=== PATIENT | male | born 1950 | race Hispanic/Latino ===

== ENCOUNTER 2022-07-19 07:04 | Day surgery (SDC) | payer OTHER ==
[2022-07-17 13:26] LABS: BASOPHILS % (AUTO) 0.3 % (0.0-5.0); EOSINOPHILS % (AUTO) 0.9 % (0.0-8.0); HEMATOCRIT 45.9 % (42-54); LYMPHOCYTES % (AUTO) 33.1 % (21.0-51.0); MEAN CORPUSCULAR HEMOGLOBIN 30.8 pg (27.0-33.0); MEAN CORPUSCULAR HGB CONC 33.8 g/dL (32.0-36.0); MEAN CORPUSCULAR VOLUME 91.3 fL (79-99); MONOCYTES % (AUTO) 6.6 % (3.0-13.0); NEUTROPHILS % (AUTO) 58.4 % (40.0-77.0); PLATELET COUNT (AUTO) 200 K/uL (130-400); RED BLOOD CELL COUNT(AUTO) 5.03 MIL/uL (4.50-6.20); RED CELL DISTRIBUTION WIDTH 13.4 % (11.0-15.5)
[2022-07-18 11:49] VITALS: BP 131/61
[~2022-07-19] VITALS: Ht 165.1 cm; Wt 73.5 kg
[2022-07-19] VITALS (18 sets, daily range): BP systolic 103–134; BP diastolic 47–73
[~2022-07-19 07:04] MED LIST: ATOR20TA65 PO; CEFAZOLIN SODIUM 1 GM VIAL IVPB SCH; CYAN-35 PO; EMPA10TA PO; ENAL10TA18 PO; FAMO20TA8 PO; GLIP10TA9 PO; MIRA25TA PO; OMEP-420 PO; SITA1TAB6 PO; TAMS-1 PO
[2022-07-19] MEDS ORDERED: BUPIVACAINE/PF 0.25% 30ML VIAL IJ ONE (07:17)
[2022-07-19] MEDS ORDERED: 0.9%NACL 1000ML 1,000 ML IV ONE (07:25)
[2022-07-19] MEDS ORDERED: BACITRACIN 28.4 GM OINT TP ONE (07:29)
[2022-07-19] MEDS ORDERED: MIDAZOLAM HCL 1 MG/ML 2ML VIAL ONE (08:44)
[2022-07-19] MEDS ORDERED: ONDANSETRON 4MG INJ ONE (08:45)
[2022-07-19] MEDS ORDERED: ROCURONIUM 10MG/1ML SYR 10 MG/ML ML ONE (08:45)
[2022-07-19] MEDS ORDERED: PROPOFOL 10 MG/ML 20ML VIAL IV ONE (08:45)
[2022-07-19] MEDS ORDERED: FENTANYL CITRATE PF 50 MCG/1 ML 2ML VIAL ONE ×2 (08:46→09:19)
[2022-07-19] MEDS ORDERED: PHENYLEPHRINE HCL 10 MG/ML 1ML VIAL IV ONE (09:12)
[2022-07-19] MEDS ORDERED: NEOSTIGMINE 5MG/5ML SYR IV ONE (09:31)
[2022-07-19] MEDS ORDERED: GLYCOPYRROLATE 1 MG/5 ML SYRINGE ONE ×2 (09:31→09:58)
== END 2022-07-19 11:45 | disposition home or self-care (01) ==
LOC: DAH 07:04
PROVIDERS: ATTEND Urology
DX: N48.89 Other specified disorders of penis (principal); Z20.822 Contact with and (suspected) exposure to COVID-19; I10 Essential (primary) hypertension; K21.9 Gastro-esophageal reflux disease without esophagitis; E11.9 Type 2 diabetes mellitus without complications; Z79.899 Other long term (current) drug therapy; Z98.890 Other specified postprocedural states
CPT/HCPCS: 87426; 80048; 85025; 36415; 93005; 11421; 82948 ×2; 88305; 88312; A6260; A4663; J7030 ×2; A4606; J3010 ×2; J0690; J3490 ×3; J2710; J2250; J2704; J2405; J2370; A4215; A4223; A4222; A4221; A4510; A4600

== ENCOUNTER 2022-08-12 10:49 | Observation (INO) | payer OTHER ==
[~2022-08-12] VITALS: Ht 165.1 cm; Wt 74.1 kg
[~2022-08-12 10:49] MED LIST changes: -CEFAZOLIN SODIUM 1 GM VIAL IVPB SCH
[2022-08-12] MEDS ORDERED: IPRATROPIUM/ALBUTEROL SULFATE 3 ML SOLUTION IH ONE ×2 (12:00→14:00)
[2022-08-12] MEDS ORDERED: 0.9% NACL 500ML IV.SOLN 500 ML IV ONE ×2 (12:00→13:00)
[2022-08-12 12:07] LABS: BASOPHILS % (AUTO) 0.3 % (0.0-5.0); EOSINOPHILS % (AUTO) 0.1 % (0.0-8.0); HEMATOCRIT 46.2 % (42-54); MEAN CORPUSCULAR HEMOGLOBIN 30.4 pg (27.0-33.0); MEAN CORPUSCULAR HGB CONC 34.6 g/dL (32.0-36.0); MEAN CORPUSCULAR VOLUME 87.8 fL (79-99); NEUTROPHILS % (AUTO) 83.1 % (40.0-77.0); PLATELET COUNT (AUTO) 198 K/uL (130-400); RED BLOOD CELL COUNT(AUTO) 5.26 MIL/uL (4.50-6.20); RED CELL DISTRIBUTION WIDTH 13.5 % (11.0-15.5); WHITE BLOOD COUNT (AUTO) 11.8 K/uL (4.8-10.8)
[2022-08-12 12:17] LABS: CREATININE 1.1 mg/dL (0.5-1.5); POTASSIUM 3.8 mmol/L (3.5-5.1)
[2022-08-12 12:22] LABS: ALBUMIN 4.3 g/dL (3.5-5.0); TOTAL PROTEIN, SERUM 8.2 g/dL (6.0-8.3)
[2022-08-12 12:30] LABS: APPEARANCE,URINE CLEAR (CLEAR)
[2022-08-12 12:31] LABS: BILIRUBIN,URINE NEGATIVE (NEGATIVE); COLOR,URINE LIGHT-YELLOW (YELLOW); GLUCOSE, URINE (UA) >=1000 mg/dL (NEGATIVE); KETONES,URINE 10 mg/dL (NEGATIVE); LEUKOCYTE ESTERASE ,URINE NEGATIVE Leu/uL (NEGATIVE); NITRATE,URINE NEGATIVE (NEGATIVE); OCCULT BLOOD,URINE NEGATIVE (NEGATIVE); PROTEIN,URINE NEGATIVE (NEGATIVE); UROBILINOGEN,URINE 0.2 mg/dL (0.2-1.0)
[2022-08-12 12:49] LABS: RBC,URINE 0-1 /HPF (0-1)
[2022-08-12] MEDS ORDERED: CEFTRIAXONE 1G VIAL IVP ONE (13:00)
[2022-08-12] MEDS ORDERED: SOLU-MEDROL 125MG VIAL IVP ONE (13:00)
[2022-08-12] MEDS ORDERED: CLONIDINE HCL 0.1 MG TABLET PO PRN (15:00)
[2022-08-12] MEDS: SOLU-MEDROL 125MG VIAL IVP SCH ×2 (15:00→22:39)
[2022-08-12] MEDS ORDERED: LACTULOSE 20 GM/30 ML UDCUP PO PRN (15:00)
[2022-08-12] MEDS ORDERED: IPRATROPIUM/ALBUTEROL SULFATE 3 ML SOLUTION IH SCH (15:00)
[2022-08-12] MEDS ORDERED: TEMAZEPAM 15 MG CAPSULE PO PRN (15:00)
[2022-08-12] MEDS ORDERED: ACETAMINOPHEN 325 MG TAB PO PRN (15:00)
[2022-08-12] MEDS ORDERED: HYDRALAZINE 20MG/ML VIAL IV PRN (15:00)
[2022-08-12] MEDS ORDERED: ONDANSETRON 4MG INJ IVP PRN (15:00)
[2022-08-12] MEDS ORDERED: ACETAMINOPHEN 650 MG SUPPOSITORY RC PRN (15:00)
[2022-08-12] MEDS ORDERED: LEVOFLOXACIN 500 MG/D5W 100 ML IV SCH (16:00)
[2022-08-12] MEDS ORDERED: IOHEXOL 350 MG/ML 100ML INFUS..BTL IV ONE (16:04)
[2022-08-12] MEDS: LEVOFLOXACIN 500 MG/D5W 100 ML 100 ML IV SCH (16:09)
[2022-08-12] MEDS: INSULIN HUMULIN R 100 UNIT/ML 3ML SQ SCH ×2 (16:09→21:25)
[2022-08-12] MEDS: IPRATROPIUM/ALBUTEROL SULFATE 3 ML SOLUTION IH SCH ×2 (18:29→23:04)
[2022-08-12] MEDS: BUDESONIDE 0.5 MG/2 ML INH IH SCH (18:46)
[2022-08-12] MEDS ORDERED: 0.9%NACL 1000ML 1,000 ML IV STA (22:50)
[2022-08-13] VITALS (7 sets, daily range): BP systolic 118–150; BP diastolic 56–85
[2022-08-13] MEDS ORDERED: PANTOPRAZOLE 40 MG TAB DR PO PRN (01:00)
[2022-08-13] MEDS: IPRATROPIUM/ALBUTEROL SULFATE 3 ML SOLUTION IH SCH ×6 (02:11→23:10)
[2022-08-13 04:00] LABS: BASOPHILS % (AUTO) 0.1 % (0.0-5.0); HEMATOCRIT 41.2 % (42-54); LYMPHOCYTES % (AUTO) 7.5 % (21.0-51.0); MEAN CORPUSCULAR HEMOGLOBIN 30.5 pg (27.0-33.0); MEAN CORPUSCULAR VOLUME 89.8 fL (79-99); MONOCYTES % (AUTO) 1.4 % (3.0-13.0); NEUTROPHILS % (AUTO) 90.4 % (40.0-77.0); PLATELET COUNT (AUTO) 180 K/uL (130-400); RED BLOOD CELL COUNT(AUTO) 4.59 MIL/uL (4.50-6.20); RED CELL DISTRIBUTION WIDTH 13.9 % (11.0-15.5); WHITE BLOOD COUNT (AUTO) 9.7 K/uL (4.8-10.8)
[2022-08-13 04:18] LABS: B-TYPE NATRIURETIC PEPTIDE 83 pg/mL (0-100)
[2022-08-13 04:25] LABS: CREATININE 0.9 mg/dL (0.5-1.5); MAGNESIUM 1.9 mg/dL (1.80-2.40); PHOSPHORUS 3.1 mg/dL (2.5-4.9)
[2022-08-13] MEDS: SOLU-MEDROL 125MG VIAL IVP SCH ×3 (04:40→23:09)
[2022-08-13] MEDS: INSULIN HUMULIN R 100 UNIT/ML 3ML SQ SCH ×3 (05:44→20:42)
[2022-08-13] MEDS ORDERED: 0.9%NACL 1000ML 1,000 ML IV ONE (06:00)
[2022-08-13] MEDS ORDERED: 0.9%NACL 1000ML 1,000 ML IV SCH (06:00)
[2022-08-13] MEDS: BUDESONIDE 0.5 MG/2 ML INH IH SCH ×2 (06:13→18:31)
[2022-08-13] MEDS: MIRABEGRON PO SCH (09:00)
[2022-08-13] MEDS: ASCORBIC ACID 500 MG TAB PO SCH (09:26)
[2022-08-13] MEDS: ASPIRIN 81MG CHEW TAB PO SCH (09:26)
[2022-08-13] MEDS: GLIPIZIDE 5 MG TABLET PO SCH (09:26)
[2022-08-13] MEDS: ENALAPRIL MALEATE 10 MG TABLET PO SCH (09:26)
[2022-08-13] MEDS: CYANOCOBALAMIN (VITAMIN B-12) 1,000 MCG TABLET PO SCH (09:27)
[2022-08-13] MEDS: FOLIC ACID 1 MG TABLET PO SCH (09:27)
[2022-08-13] MEDS: PANTOPRAZOLE 40 MG TAB DR PO SCH (09:27)
[2022-08-13] MEDS: THIAMINE HCL 100 MG TABLET PO SCH (09:27)
[2022-08-13] MEDS: ENOXAPARIN SODIUM 40 MG/0.4 ML SYRINGE SQ SCH (09:32)
[2022-08-13] MEDS: LEVOFLOXACIN 500 MG/D5W 100 ML 100 ML IV SCH (15:41)
[2022-08-13] MEDS ORDERED: FAMOTIDINE 20MG TAB PO SCH (21:00)
[2022-08-13] MEDS ORDERED: TAMSULOSIN HCL 0.4 MG CAP.ER.24H PO SCH (21:00)
[2022-08-13] MEDS ORDERED: ATORVASTATIN 20 MG TABLET PO SCH (21:00)
[2022-08-14] MEDS: IPRATROPIUM/ALBUTEROL SULFATE 3 ML SOLUTION IH SCH ×3 (01:51→10:18)
[2022-08-14 04:27] VITALS: BP 152/86
[2022-08-14 04:53] LABS: HEMATOCRIT 38.5 % (42-54); MEAN CORPUSCULAR HEMOGLOBIN 30.3 pg (27.0-33.0); MEAN CORPUSCULAR VOLUME 91.9 fL (79-99); RED BLOOD CELL COUNT(AUTO) 4.19 MIL/uL (4.50-6.20); RED CELL DISTRIBUTION WIDTH 14.4 % (11.0-15.5)
[2022-08-14 05:17] LABS: ALBUMIN 3.1 g/dL (3.5-5.0); CREATININE 0.9 mg/dL (0.5-1.5); MAGNESIUM 1.9 mg/dL (1.80-2.40); POTASSIUM 3.8 mmol/L (3.5-5.1); TOTAL PROTEIN, SERUM 6.1 g/dL (6.0-8.3)
[2022-08-14] MEDS: SOLU-MEDROL 125MG VIAL IVP SCH (05:32)
[2022-08-14] MEDS: INSULIN HUMULIN R 100 UNIT/ML 3ML SQ SCH ×2 (05:42→11:30)
[2022-08-14] MEDS: BUDESONIDE 0.5 MG/2 ML INH IH SCH (06:28)
[2022-08-14] MEDS: GLIPIZIDE 5 MG TABLET PO SCH (06:33)
[2022-08-14 07:30] VITALS: BP 144/75
[2022-08-14] MEDS: MIRABEGRON PO SCH (09:00)
[2022-08-14] MEDS ORDERED: BUDE10.22 IH (09:03)
[2022-08-14] MEDS ORDERED: ALBU90AE2 IH (09:05)
[2022-08-14] MEDS ORDERED: PRED20TA3 PO (09:06)
[2022-08-14] MEDS: ENOXAPARIN SODIUM 40 MG/0.4 ML SYRINGE SQ SCH (09:14)
[2022-08-14] MEDS: ASCORBIC ACID 500 MG TAB PO SCH (09:14)
[2022-08-14] MEDS: FOLIC ACID 1 MG TABLET PO SCH (09:14)
[2022-08-14] MEDS: ENALAPRIL MALEATE 10 MG TABLET PO SCH (09:15)
[2022-08-14] MEDS: PANTOPRAZOLE 40 MG TAB DR PO SCH (09:16)
[2022-08-14] MEDS: CYANOCOBALAMIN (VITAMIN B-12) 1,000 MCG TABLET PO SCH (09:16)
[2022-08-14] MEDS: THIAMINE HCL 100 MG TABLET PO SCH (09:16)
[2022-08-14] MEDS: ASPIRIN 81MG CHEW TAB PO SCH (09:16)
[2022-08-14] MEDS ORDERED: LEVO750T68 PO (09:32)
== END 2022-08-14 12:00 | disposition home or self-care (01) ==
LOC: EDH 10:49 → INTOOBSV 14:59 → OBSVTOIN 14:59 → EDHIP 14:59 → 4AH 08-13 00:24
PROVIDERS: ADMIT Internal Medicine Critical Care Medicine; ATTEND Internal Medicine Critical Care Medicine
DX: J96.01 Acute respiratory failure with hypoxia (principal); Z20.822 Contact with and (suspected) exposure to COVID-19; J44.1 Chronic obstructive pulmonary disease with (acute) exacerbation; E87.20 Acidosis, unspecified; I10 Essential (primary) hypertension; E11.9 Type 2 diabetes mellitus without complications; N40.0 Benign prostatic hyperplasia without lower urinary tract symptoms; E78.5 Hyperlipidemia, unspecified; E78.00 Pure hypercholesterolemia, unspecified; B34.9 Viral infection, unspecified; Z79.899 Other long term (current) drug therapy; Z98.890 Other specified postprocedural states; Z87.891 Personal history of nicotine dependence
CPT/HCPCS: 94640 ×16; 96376 ×3; 96365; 96375; 99285; 82550 ×3; 83874 ×3; 84484 ×4; 80053 ×2; 83880 ×2; 85025 ×2; 87040 ×2; 87071 ×2; 87205 ×2; 87804 ×2; 82948 ×5; 83605 ×6; 81001; 36415 ×3; 87635; 71045; 71270; 93005; 94664; 94760 ×2; 96372 ×2; 96366; 83735 ×2; 84100; 80048; 85378; 84145 ×2; 85027; J1815 ×4; G0378 ×40; C9803; J7040; J1956 ×2; J2930 ×6; J0696; Q9967; J7030; J1650 ×2